=== PATIENT | female | born 1975 | race Caucasian/White ===

== ENCOUNTER → 2018-06-12 | Outpatient (CLI) | payer BC ==
[2004-10-05 06:24] VITALS: TEMP 97.7
== END ==
LOC: MC.RAD 15:14
DX: Z12.31 Encounter for screening mammogram for malignant neoplasm of breast (principal)

== ENCOUNTER 2019-07-15 13:32 | Emergency (ER) | payer BC ==
[~2019-07-15] VITALS: Ht 175.3 cm; Wt 100.0 kg
[2019-07-15 13:42] VITALS: BP 146/81; TEMP 99.4
[2019-07-15] MEDS ORDERED: SINGULAIR 110 MG/TAB PO (14:02)
[2019-07-15] MEDS ORDERED: CELEXA 20MG20 MG/TAB PO (14:02)
[2019-07-15] MEDS ORDERED: TOPROL XL 50MG50 MG PO (14:03)
[2019-07-15] MEDS ORDERED: ZYRTEC 10MG10 MG PO (14:03)
[2019-07-15] MEDS ORDERED: BIRTH CONTROL (14:04)
[2019-07-15 15:34] LABS: BASO % 0.4 % (0.0-2.0); EOS % 0.5 % (0-4.0); GRAN % 69.9 % (42.2-75.2); HEMATOCRIT 39.5 % (37.0-47.0); HEMOGLOBIN 13.3 g/dl (12.5-16.0); LYMPH # 1.2 (1.2-3.4); LYMPH % 21.7 % (20.0-51.0); MEAN CELL VOLUME 94 fl (80.0-100.0); MEAN CORPUSCULAR HEMOGLOBIN 32 pg (27.0-31.0); MEAN CORPUSCULAR HGB CONC 34 g/dl (33.0-37.0); MEAN PLATELET VOLUME 9.3 fl (7.4-10.4); MONO # 0.4 (0.1-0.6); MONO % 7.1 % (1.7-9.3); PLATELET COUNT 184 K/mm3 (130-400); RED BLOOD COUNT 4.21 M/mm3 (4.10-5.30); REDCELL DISTRIBUTION WIDTH-CV 13.1 % (11.5-14.5)
[2019-07-15 15:44] LABS: ALANINE AMINOTRANSFERASE 10 U/L (9-52); ALBUMIN 4.3 gm/dL (3.5-5.0); ALKALINE PHOSPHATASE 85 U/L (50-136); ANION GAP 11 mmol/L (7-16); AST,SGOT 27 U/L (15-37); BILIRUBIN,TOTAL 0.3 mg/dL (0.0-1.0); BLOOD UREA NITROGEN 13 mg/dL (7-17); CALCIUM 9.7 mg/dL (8.4-10.2); CARBON DIOXIDE 26 mmol/L (22-30); CHLORIDE 107 mmol/L (98-107); CREATINE KINASE 84 U/L (30-135); CREATININE, serum 0.85 (0.52-1.25); GLUCOSE 101 mg/dL (74-106); POTASSIUM 3.8 mmol/L (3.4-5.0); SODIUM 143 mmol/L (137-145); TOTAL PROTEIN 7.5 gm/dL (6.4-8.2)
[2019-07-15 16:01] LABS: TROPONIN-I < 0.012 ng/mL (0.000-0.035)
[2019-07-15 18:33] VITALS: PULSE 102
== END 2019-07-15 18:33 | disposition home or self-care (01) ==
LOC: COL.ER 13:32
PROVIDERS: Emergency Medicine
DX: R00.2 Palpitations (principal); I42.9 Cardiomyopathy, unspecified; Z95.4 Presence of other heart-valve replacement
CPT/HCPCS: J7030

== ENCOUNTER 2021-04-30 07:59 | Emergency (ER) | payer BC ==
[~2021-04-30] VITALS: Ht 175.3 cm; Wt 104.5 kg
[~2021-04-30 07:59] MED LIST: BIRTH CONTROL; CELEXA 20MG20 MG/TAB PO; SINGULAIR 110 MG/TAB PO; TOPROL XL 50MG50 MG PO; ZYRTEC 10MG10 MG PO
[2021-04-30 08:03] VITALS: BP 143/88; PULSE 90; TEMP 97.6
== END 2021-04-30 08:33 | disposition home or self-care (01) ==
LOC: COL.ER 07:59
DX: L23.7 Allergic contact dermatitis due to plants, except food (principal)
CPT/HCPCS: J1100

== ENCOUNTER → 2022-06-25 | Outpatient (CLI) | payer BC ==
[2004-10-05 06:24] VITALS: TEMP 97.7
== END ==
LOC: MC.RAD 10:00
DX: Z12.31 Encounter for screening mammogram for malignant neoplasm of breast (principal)

== ENCOUNTER → 2023-07-22 | Outpatient (CLI) | payer BC ==
[2004-10-05 06:24] VITALS: TEMP 97.7
== END ==
LOC: CANSCHCLI → MC.RAD 09:30
DX: Z12.31 Encounter for screening mammogram for malignant neoplasm of breast (principal)